=== PATIENT | female | born 1965 | race Caucasian/White ===

== ENCOUNTER → 2020-01-02 | Outpatient (CLI) | payer OTHER ==
--- NOTE | 2020-01-02 13:46 | RAD ---
EXAM: ULTRASOUND-GUIDED THYROID FINE-NEEDLE ASPIRATION. HISTORY: Thyroid nodule. Ultrasound-guided biopsy of the dominant left nodule is requested. FINDINGS: The procedure along with its risks and benefits were explained to the patient. They agreed to proceed. A timeout procedure was performed. Sonographic images of the thyroid gland were obtained. The solid target nodule in the inferior left thyroid lobe was adequately visualized for biopsy. The overlying skin was sterilely prepped and infiltrated with 1% lidocaine for local anesthesia. Under ultrasound guidance, 4 aspirates were obtained using 25-gauge needles. These were hand delivered to pathology who determined them adequate for diagnosis. A sterile dressing was placed. There were no immediate complications. IMPRESSION: 1. Successful ultrasound-guided fine-needle aspiration of the inferior left thyroid nodule. Electronically signed by: Sera Anthony MD (01/02/2020 1:44 PM) [id number]
--- NOTE | 2020-01-06 11:07 | PATHOLOGY ---
Note [facility] Accession Number: [id number] TESTS RESULT FLAG UNITS REF RANGE LAB Clinician Provided Cytology Information No. of containers..01 Other (Miscellaneous) Source: LEFT THYROID DIAGNOSIS: LEFT THYROID NEGATIVE FOR MALIGNANT CELLS. B[place]ES[place] CATEGORY II. SPECIMEN CONSISTS OF BENIGN FOLLICULAR CELLS, HEMOSIDERIN-LADEN MACROPHAGES, COLLOID, AND BLOOD. THIS PATTERN IS CONSISTENT WITH A COLLOID NODULE. COLLOID IS PRESENT. RED BLOOD CELLS ARE PRESENT. THIS INTERPRETATION INCLUDES EVALUATION OF A CELL BLOCK. COMMENT, THERE ARE MOSTLY MACROFOLLICULAR ARCHITECTURE WITH FEW MICROFOLLICLES ADMIXED WITH COLLOID AND MACROPHAGES. THE MATERIAL ASPIRATED MAY NOT BE FOOD COUNTER ATTENDANT. SUGGEST RADIOLOGICAL AND CLINICAL CORRELATION AND FOLLOW UP CLINICALLY INDICATED. Pathologist ICD10: 02 E04.1 Signed out by: Inocente Santoro MD, Pathologist NPI- [id number] Performed by: Yancy Brown, Senior Consulting Manager ([facility]) Gross description: 30ML, CLEAR COLORLESS, 2F 2A 2HE /LCS 01/02/2020 1646 Local FLAG LEGEND: L-Low Normal,H-High Normal,LL-Alert Low,HH-Alert High <-Panic Low,>-Panic High,A-Abnormal,AA-Critical Abnormal Performed at: [facility] [address] [address] [place] [address] Robson Lawson MD, NEEL [facility] [address] [id number] Gomez Keith MD, Specimen Comment: A courtesy copy of this report has been sent to [phone], [phone]- Specimen Comment: [id number], Specimen Comment: [id number] Specimen Comment: Report sent to ,DR CHONG / DR ANGELES Performed at: [address] [facility], [place], [place] [id number] MD Robson Lawson MD Phone: [phone]
== END | disposition home or self-care (01) ==
LOC: US 08:53
PROVIDERS: ATTEND Surgery
DX: E04.1 Nontoxic single thyroid nodule (principal)
CPT/HCPCS: 10005; 60300; 76942; 88173; 88305